=== PATIENT | female | born 1950 | race African-American/Black ===

== ENCOUNTER 2024-09-25 12:50 | Inpatient (IN) | payer OTHER, MEDICARE ==
[~2024-09-25] VITALS: Ht 167.6 cm; Wt 78.1 kg
[2024-09-25] MEDS: DILTIAZEM HCL 5MG/ML 5ML VIAL IV ONE ×3 (13:40→19:15)
[2024-09-25] MEDS: SODIUM CHLORIDE 0.9% 1,000 ML IV ONE (13:40)
[2024-09-25 15:02] LABS: BASOPHILS % 0.2 % (0.0-2.0); HEMATOCRIT. 36.4 % (36.0-48.0); HEMOGLOBIN. 11.7 g/dL (12.0-16.0); LYMPHOCYTES % 12.8 % (20.0-50.0); MEAN CORPUSCULAR HEMOGLOBIN 28.8 pg (28.0-32.0); MEAN CORPUSCULAR HGB CONC 32.1 g/dL (31.0-37.0); MEAN CORPUSCULAR VOLUME 89.6 fL (81.0-99.0); MEAN PLATELET VOLUME 8.7 fl (7.4-10.4); MONOCYTES % 6.7 % (2.0-8.0); NEUTROPHILS % 80.3 % (40.0-76.0); PLATELET 151 x1000/uL (130-400); RED BLOOD CELL COUNT 4.06 mill/uL (4.2-5.4); RED CELL DISTRIBUTION WIDTH 14.9 % (11.6-14.6); WHITE BLOOD COUNT 20.9 x1000/uL (4.5-11.0)
[2024-09-25 15:09] LABS: CHLORIDE 101 mEq/L (98-107); POTASSIUM 3.2 mEq/L (3.5-5.1); SODIUM 134 mEq/L (136-145)
[2024-09-25 15:10] LABS: CARBON DIOXIDE 19 mEq/L (21-32)
[2024-09-25 15:11] LABS: CALCIUM 8.3 mg/dL (8.7-10.4)
[2024-09-25 15:15] LABS: CREATININE 0.9 mg/dL (0.6-1.0); GLUCOSE 335 mg/dL (70-105)
[2024-09-25 15:16] LABS: ETHANOL BLOOD < 10 mg/dL (<10); UREA NITROGEN BLOOD 8 mg/dL (9-23)
[2024-09-25 15:17] LABS: ALANINE AMINOTRANSFERASE 12 IU/L (10-49); ALBUMIN 4.1 g/dL (3.2-4.8); ASPARTATE AMINOTRANSFERASE 16 IU/L (<34)
[2024-09-25 15:18] LABS: BILIRUBIN DIRECT 0.4 mg/dL (<=3.0); BILIRUBIN TOTAL 1.5 mg/dL (0.1-1.0); PROTEIN TOTAL 7.1 g/dL (6.0-8.3)
[2024-09-25 15:39] LABS: TROPONIN I HIGH SENSITIVITY 113 ng/L (3.0-34)
[2024-09-25] MEDS ORDERED: PIPERACILLIN/TAZO 3.375G/100ML 100 ML IV SCH (16:00)
[2024-09-25] MEDS: HYDROCODONE/ACETAMINOPHEN 5/325MG TABLET PO ONE (16:18)
[2024-09-25] MEDS: POTASSIUM CHLORIDE 20MEQ/PACKET PO ONE (16:18)
[2024-09-25] MEDS: PIPERACILLIN/TAZO 3.375G/50ML 50 ML IV NR (16:53)
[2024-09-25] MEDS ORDERED: SODIUM PHOSPHATE 15 MMOL in SODIUM CHLORIDE 0.9% 245 ML IV PRN (17:00)
[2024-09-25] MEDS ORDERED: INSULIN REGULAR (DRIP) 100 UNITS in SODIUM CHLORIDE 0.9% 99 ML IV SCH (17:00)
[2024-09-25] MEDS ORDERED: POTASSIUM CHLORIDE 40 MEQ in SODIUM CHLORIDE 0.9% 230 ML IV PRN (17:00)
[2024-09-25] MEDS ORDERED: DEXTROSE 50% WATER 50ML SYRINGE IV PRN ×4 (17:00→20:00)
[2024-09-25] MEDS ORDERED: BLOOD SUGAR DIAGNOSTIC STRIP TEST PRN ×2 (17:00→20:00)
[2024-09-25 17:34] LABS: LACTIC ACID 2.8 mmol/L (0.4-2.0)
[2024-09-25] MEDS: INSULIN REGULAR (HUMULIN R) 1000UNITS/10ML VIAL IV ONE (17:51)
[2024-09-25] MEDS: BLOOD SUGAR DIAGNOSTIC STRIP TEST SCH ×2 (17:52→20:15)
[2024-09-25] MEDS: INSULIN REGULAR 100U/100ML PMX 100 ML IV SCH (17:52)
[2024-09-25] MEDS: SODIUM CHLORIDE 0.9% 1,000 ML IV SCH ×2 (17:52→21:00)
[2024-09-25 18:07] LABS: BG BASE EXCESS -3.2 mmol/L (-2.0-3.0); BG CARBOXYHEMOGLOBIN 0.4 % (0.5-1.5); BG DEOXYHEMOGLOBIN 2.9 % (0.0-5.0); BG FRACTION INSPIRED OXYGEN 21; BG HCO3 ACT 18.9 mmol/L (21.0-28.0); BG METHEMOGLOBIN 0.3 % (0.5-1.5); BG OXYGEN SATURATION 97.1 % (94.0-98.0); BG OXYHEMOGLOBIN 96.4 % (94.0-98.0); BG PCO2 25.2 mmHg (32.0-45.0); BG PH 7.492 (7.350-7.450); BG PO2 83.4 mmHg (83.0-108.0); BG SAMPLE SITE RIGHT BRACHIAL; BG TOTAL HEMOGLOBIN 11.2 g/dL (12.0-16.0); BG VENT MODE ROOM AIR
[2024-09-25 18:18] LABS: PHOSPHORUS 1.7 mg/dL (2.5-4.9)
[2024-09-25] MEDS ORDERED: MAGNESIUM/ALUMINUM HYDROXIDE/SIMETHICONE 30ML UDC PO PRN (20:00)
[2024-09-25] MEDS ORDERED: MAGNESIUM 2 G PREMIX 50 ML IV PRN (20:00)
[2024-09-25] MEDS ORDERED: ONDANSETRON HCL 4MG/2ML INJ IV PRN (20:00)
[2024-09-25] MEDS ORDERED: DOCUSATE SODIUM 100MG CAPSULE PO PRN (20:00)
[2024-09-25] MEDS ORDERED: KCL 20MEQ/100ML PREMIX 100 ML IV PRN (20:00)
[2024-09-25] MEDS ORDERED: CLONIDINE 0.1MG TABLET PO PRN (20:00)
[2024-09-25] MEDS: DEXT 5%/0.9% NACL 1,000 ML IV SCH ×2 (20:55→21:00)
[2024-09-25] MEDS ORDERED: BLOOD SUGAR DIAGNOSTIC STRIP TEST SCH (21:00)
[2024-09-25] MEDS ORDERED: POTASSIUM CHLORIDE 40 MEQ in SODIUM CHLORIDE 0.9% 250 ML IV PRN (21:00)
[2024-09-25] MEDS ORDERED: AMIODARONE 360MG/200ML 200 ML IV SCH (21:15)
[2024-09-25 21:22] LABS: BG BASE EXCESS -4.2 mmol/L (-2.0-3.0); BG CARBOXYHEMOGLOBIN 0.3 % (0.5-1.5); BG DEOXYHEMOGLOBIN 77.9 % (0.0-5.0); BG FRACTION INSPIRED OXYGEN 21; BG HCO3 ACT 19.9 mmol/L (21.0-28.0); BG METHEMOGLOBIN 1.5 % (0.5-1.5); BG OXYGEN SATURATION 20.7 % (94.0-98.0); BG OXYHEMOGLOBIN 20.3 % (94.0-98.0); BG PCO2 32.9 mmHg (32.0-45.0); BG PH 7.399 (7.350-7.450); BG PO2 < 30.3 mmHg (83.0-108.0); BG SAMPLE SITE PL; BG TOTAL HEMOGLOBIN 11.4 g/dL (12.0-16.0); BG VENT MODE ROOM AIR
[2024-09-25] MEDS: AMIODARONE 360MG/200ML 200 ML IV SCH (21:27)
[2024-09-25 21:37] LABS: CHLORIDE 108 mEq/L (98-107); POTASSIUM 3.6 mEq/L (3.5-5.1); SODIUM 138 mEq/L (136-145)
[2024-09-25 21:38] LABS: CALCIUM 8.2 mg/dL (8.7-10.4); CARBON DIOXIDE 20 mEq/L (21-32)
[2024-09-25 21:43] LABS: CREATININE 0.8 mg/dL (0.6-1.0); GLUCOSE 189 mg/dL (70-105); UREA NITROGEN BLOOD 8 mg/dL (9-23)
[2024-09-25 21:45] LABS: PHOSPHORUS 1.1 mg/dL (2.5-4.9)
[2024-09-25] MEDS: AMIODARONE 150MG/100ML D5W 100 ML IV NR (21:46)
[2024-09-25] MEDS: LORAZEPAM 2MG/ML UD SYRINGE IV NR (23:28)
[2024-09-26] VITALS (75 sets, daily range): BP systolic 53–184; BP diastolic 25–119; PULSE 93–173; RESP 19–42; TEMP 37–38.3; O2SAT 91–100
[2024-09-26] MEDS: SODIUM PHOSPHATE 15 MMOL in SODIUM CHLORIDE 0.9% 245 ML IV PRN
[2024-09-26] MEDS: MAGNESIUM 2 G PREMIX 50 ML IV PRN (00:20)
[2024-09-26] MEDS: KCL 20MEQ/100ML PREMIX 100 ML IV PRN (00:21)
[2024-09-26 00:56] LABS: CHLORIDE 108 mEq/L (98-107); SODIUM 138 mEq/L (136-145)
[2024-09-26 00:57] LABS: CARBON DIOXIDE 18 mEq/L (21-32)
[2024-09-26 01:05] LABS: PHOSPHORUS 1.1 mg/dL (2.5-4.9)
[2024-09-26 01:07] LABS: POTASSIUM 2.7 mEq/L (3.5-5.1)
[2024-09-26] MEDS ORDERED: DEXTROSE 50% WATER 50ML SYRINGE IV PRN (01:45)
[2024-09-26] MEDS ORDERED: HEPARIN 25,000 UNITS PREMIX 250 ML IV PRN (01:45)
[2024-09-26] MEDS: DILTIAZEM HCL 125 MG in DEXT 5% WATER 100 ML IV PRN ×2 (02:07→12:32)
[2024-09-26] MEDS: SODIUM CHLORIDE 0.9% 1,000 ML IV SCH (02:07)
[2024-09-26] MEDS: MAGNESIUM 4 G PREMIX 100 ML IV NR (02:07)
[2024-09-26] MEDS: KCL 20MEQ/100ML PREMIX 100 ML IV SCH ×2 (02:16→08:17)
[2024-09-26] MEDS: INSULIN GLARGINE 100 UNITS/ML SUBCUT SCH (03:12)
[2024-09-26 03:18] LABS: CHLORIDE 104 mEq/L (98-107); POTASSIUM 2.9 mEq/L (3.5-5.1); SODIUM 136 mEq/L (136-145)
[2024-09-26 03:19] LABS: CALCIUM 7.9 mg/dL (8.7-10.4); CARBON DIOXIDE 19 mEq/L (21-32)
[2024-09-26] MEDS: CEFTRIAXONE 1GM/50ML 50 ML IV SCH (03:21)
[2024-09-26 03:24] LABS: CREATININE 0.8 mg/dL (0.6-1.0); GLUCOSE 284 mg/dL (70-105); UREA NITROGEN BLOOD 6 mg/dL (9-23)
[2024-09-26 03:25] LABS: BASOPHILS % 0.2 % (0.0-2.0); HEMATOCRIT. 33.3 % (36.0-48.0); HEMOGLOBIN. 10.7 g/dL (12.0-16.0); MEAN CORPUSCULAR HEMOGLOBIN 28.3 pg (28.0-32.0); MEAN CORPUSCULAR HGB CONC 32.2 g/dL (31.0-37.0); MEAN CORPUSCULAR VOLUME 87.9 fL (81.0-99.0); MEAN PLATELET VOLUME 8.9 fl (7.4-10.4); MONOCYTES % 7.9 % (2.0-8.0); NEUTROPHILS % 75.9 % (40.0-76.0); PLATELET 138 x1000/uL (130-400); RED BLOOD CELL COUNT 3.78 mill/uL (4.2-5.4); RED CELL DISTRIBUTION WIDTH 14.9 % (11.6-14.6); WHITE BLOOD COUNT 12.1 x1000/uL (4.5-11.0)
[2024-09-26 03:50] LABS: INR 1.1; PARTIAL THROMBOPLASTIN TIME 35.1 sec (23.4-31.0); PROTHROMBIN TIME 11.5 sec (9.6-11.0)
[2024-09-26] MEDS: BLOOD SUGAR DIAGNOSTIC STRIP TEST SCH (06:22)
[2024-09-26 06:25] LABS: BASOPHILS % 0.2 % (0.0-2.0); HEMATOCRIT. 34.6 % (36.0-48.0); HEMOGLOBIN. 11.2 g/dL (12.0-16.0); LYMPHOCYTES % 15.7 % (20.0-50.0); MEAN CORPUSCULAR HEMOGLOBIN 28.6 pg (28.0-32.0); MEAN CORPUSCULAR HGB CONC 32.2 g/dL (31.0-37.0); MEAN CORPUSCULAR VOLUME 88.9 fL (81.0-99.0); MEAN PLATELET VOLUME 9.5 fl (7.4-10.4); MONOCYTES % 7.6 % (2.0-8.0); NEUTROPHILS % 76.5 % (40.0-76.0); PLATELET 138 x1000/uL (130-400); RED BLOOD CELL COUNT 3.89 mill/uL (4.2-5.4); RED CELL DISTRIBUTION WIDTH 14.8 % (11.6-14.6); WHITE BLOOD COUNT 12.7 x1000/uL (4.5-11.0)
[2024-09-26 06:27] LABS: CARBON DIOXIDE 18 mEq/L (21-32); CHLORIDE 105 mEq/L (98-107); POTASSIUM 3.2 mEq/L (3.5-5.1); SODIUM 136 mEq/L (136-145)
[2024-09-26 06:28] LABS: CALCIUM 7.9 mg/dL (8.7-10.4)
[2024-09-26] MEDS: HEPARIN 60 UNITS/KG BOLUS IV SCH (06:28)
[2024-09-26] MEDS: INSULIN LISPRO 100 UNITS/ML SUBCUT SCH (06:32)
[2024-09-26 06:33] LABS: CREATININE 0.8 mg/dL (0.6-1.0); GLUCOSE 282 mg/dL (70-105); TRIGLYCERIDE 143 mg/dL (0-150); UREA NITROGEN BLOOD < 5 mg/dL (9-23)
[2024-09-26 06:34] LABS: LDL CHOLESTEROL 85 mg/dL (5-100)
[2024-09-26 06:35] LABS: ALANINE AMINOTRANSFERASE 17 IU/L (10-49); ALBUMIN 3.8 g/dL (3.2-4.8); ASPARTATE AMINOTRANSFERASE 33 IU/L (<34); BILIRUBIN DIRECT 0.2 mg/dL (<=3.0); CHOLESTEROL 142 mg/dL (<200); HDL CHOLESTEROL 33 mg/dL (>65); PHOSPHORUS 1.6 mg/dL (2.5-4.9)
[2024-09-26 06:36] LABS: BILIRUBIN TOTAL 0.7 mg/dL (0.1-1.0); PROTEIN TOTAL 6.8 g/dL (6.0-8.3); T4 FREE 1.07 ng/dL (0.89-1.76)
[2024-09-26] MEDS: HEPARIN 25,000 UNITS PREMIX 250 ML IV SCH (06:42)
[2024-09-26] MEDS: POTASSIUM PHOSPHATE 30 MMOL in SODIUM CHLORIDE 0.9% 490 ML IV SCH (06:57)
[2024-09-26 07:01] LABS: TROPONIN I HIGH SENSITIVITY 97 ng/L (3.0-34)
[2024-09-26] MEDS: PANTOPRAZOLE SODIUM 40 MG/VIAL IV SCH (08:16)
[2024-09-26] MEDS: HYDROCODONE/ACETAMINOPHEN 5/325MG TABLET PO PRN (08:17)
[2024-09-26] MEDS: MAGNESIUM 2 G PREMIX 50 ML IV NR (08:17)
[2024-09-26] MEDS ORDERED: ENOXAPARIN 40MG/0.4ML SYR SUBCUT SCH (09:00)
[2024-09-26 09:02] LABS: CLARITY URINE CLEAR (CLEAR); COLOR URINE YELLOW (YELLOW); GLUCOSE URINE 3+ (NEGATIVE); KETONES URINE 1+ (NEGATIVE); LEUKOCYTE ESTERASE URINE NEGATIVE (NEGATIVE); NITRITE URINE NEGATIVE (NEGATIVE); OCCULT BLOOD URINE TRACE (NEGATIVE); PROTEIN URINE 1+ (NEGATIVE); SPECIFIC GRAVITY URINE 1.015 (1.005-1.030)
[2024-09-26 09:14] LABS: BG BASE EXCESS -6.3 mmol/L (-2.0-3.0); BG CARBOXYHEMOGLOBIN 0.3 % (0.5-1.5); BG FRACTION INSPIRED OXYGEN 32; BG HCO3 ACT 16.6 mmol/L (21.0-28.0); BG METHEMOGLOBIN 0.3 % (0.5-1.5); BG OXYHEMOGLOBIN 97.4 % (94.0-98.0); BG PCO2 25.5 mmHg (32.0-45.0); BG PH 7.431 (7.350-7.450); BG PO2 95.8 mmHg (83.0-108.0); BG SAMPLE SITE LEFT RADIAL; BG TOTAL HEMOGLOBIN 11.2 g/dL (12.0-16.0); BG VENT MODE NASAL CANNULA
[2024-09-26 09:33] LABS: SQUAMOUS EPITHELIAL CELL URINE RARE /lpf (RARE/1+)
[2024-09-26 09:34] LABS: BACTERIA URINE TRACE; RBC URINE 0-2 /hpf (0-2); WBC URINE 0-2 /hpf (0-2)
[2024-09-26 10:12] LABS: *AMPHETAMINES SCREEN URINE NEGATIVE (NEGATIVE); *BARBITURATES SCREEN URINE NEGATIVE (NEGATIVE); *BENZODIAZEPINES SCREEN URINE NEGATIVE (NEGATIVE); *COCAINE SCREEN URINE NEGATIVE (NEGATIVE); CANNABINOID URINE SCREEN NEGATIVE (NEGATIVE); ECSTASY MDMA SCREEN URINE NEGATIVE (NEGATIVE); METHADONE URINE SCREEN NEGATIVE (NEGATIVE); OPIATES URINE SCREEN PRESUMPTIVE POSITIVE (NEGATIVE); PHENCYCLIDINE URINE SCREEN NEGATIVE (NEGATIVE)
[2024-09-26] MEDS: MAGNESIUM OXIDE 400MG TABLET PO SCH (12:29)
[2024-09-26] MEDS: ENOXAPARIN 80MG/0.8ML SYR SUBCUT SCH (12:29)
[2024-09-26] MEDS: DILTIAZEM HCL 30MG TABLET PO SCH (12:30)
[2024-09-26 12:32] LABS: CARBON DIOXIDE 19 mEq/L (21-32); CHLORIDE 109 mEq/L (98-107); POTASSIUM 3.2 mEq/L (3.5-5.1); SODIUM 138 mEq/L (136-145)
[2024-09-26 12:33] LABS: CALCIUM 7.2 mg/dL (8.7-10.4)
[2024-09-26 12:37] LABS: CREATININE 0.8 mg/dL (0.6-1.0); GLUCOSE 198 mg/dL (70-105)
[2024-09-26 12:38] LABS: UREA NITROGEN BLOOD < 5 mg/dL (9-23)
[2024-09-26 12:55] LABS: LACTIC ACID 2.5 mmol/L (0.4-2.0)
[2024-09-26] MEDS ORDERED: HEPARIN BOLUS PRN aPTT <30 IV (13:00)
[2024-09-26] MEDS ORDERED: HEPARIN BOLUS PRN aPTT 30-44 IV (13:00)
[2024-09-26] MEDS: ACETAMINOPHEN 325MG TABLET PO PRN (13:14)
[2024-09-26] MEDS: VANCOMYCIN 1.25GM/250ML 250 ML IV NR (13:44)
[2024-09-26] MEDS ORDERED: PIPERACILLIN/TAZO 3.375G/50ML 50 ML IV SCH (14:00)
[2024-09-26] MEDS ORDERED: NALOXONE HCL 0.4MG/ML VIAL IV PRN (14:45)
[2024-09-26] MEDS: KCL 20MEQ/100ML PREMIX 100 ML IV NR (16:05)
[2024-09-26] MEDS ORDERED: TRAMADOL 50MG TABLET PO PRN (17:45)
[2024-09-26 17:59] LABS: CHLORIDE 111 mEq/L (98-107); POTASSIUM 3.9 mEq/L (3.5-5.1); SODIUM 139 mEq/L (136-145)
[2024-09-26 18:00] LABS: CARBON DIOXIDE 18 mEq/L (21-32)
[2024-09-26 18:08] LABS: PHOSPHORUS 1.9 mg/dL (2.5-4.9)
[2024-09-26] MEDS: TRAMADOL 50MG TABLET PO PRN (20:11)
[2024-09-27] VITALS (112 sets, daily range): BP systolic 83–182; BP diastolic 36–145; PULSE 80–185; RESP 18–46; TEMP 37–38.6; O2SAT 62–100
[2024-09-27] MEDS: BLOOD SUGAR DIAGNOSTIC STRIP TEST SCH
[2024-09-27] MEDS: IPRATROPIUM/ALBUTEROL 0.5-3(2.5)MG/3ML NEB HHN PRN (00:22)
[2024-09-27] MEDS: ACETAMINOPHEN 325MG TABLET PO NR (00:30)
[2024-09-27] MEDS: INSULIN LISPRO 100 UNITS/ML SUBCUT SCH ×2 (00:39→06:15)
[2024-09-27 05:40] LABS: CHLORIDE 106 mEq/L (98-107); POTASSIUM 3.4 mEq/L (3.5-5.1); SODIUM 135 mEq/L (136-145)
[2024-09-27 05:42] LABS: CALCIUM 7.3 mg/dL (8.7-10.4); CARBON DIOXIDE 17 mEq/L (21-32)
[2024-09-27 05:47] LABS: CREATININE 0.8 mg/dL (0.6-1.0); GLUCOSE 284 mg/dL (70-105); UREA NITROGEN BLOOD 6 mg/dL (9-23)
[2024-09-27 05:49] LABS: ALANINE AMINOTRANSFERASE 63 IU/L (10-49); ALBUMIN 3.5 g/dL (3.2-4.8); ASPARTATE AMINOTRANSFERASE 105 IU/L (<34)
[2024-09-27 05:50] LABS: BASOPHILS % 0.2 % (0.0-2.0); BILIRUBIN DIRECT 0.2 mg/dL (<=3.0); BILIRUBIN TOTAL 0.6 mg/dL (0.1-1.0); EOSINOPHILS % 0.2 % (0.0-5.0); HEMATOCRIT. 29.3 % (36.0-48.0); HEMOGLOBIN. 9.5 g/dL (12.0-16.0); LYMPHOCYTES % 11.1 % (20.0-50.0); MEAN CORPUSCULAR HGB CONC 32.4 g/dL (31.0-37.0); MEAN CORPUSCULAR VOLUME 89.3 fL (81.0-99.0); MEAN PLATELET VOLUME 9.5 fl (7.4-10.4); MONOCYTES % 10.6 % (2.0-8.0); NEUTROPHILS % 77.9 % (40.0-76.0); PHOSPHORUS 2.7 mg/dL (2.5-4.9); PLATELET 134 x1000/uL (130-400); RED BLOOD CELL COUNT 3.28 mill/uL (4.2-5.4); RED CELL DISTRIBUTION WIDTH 15.2 % (11.6-14.6); WHITE BLOOD COUNT 11.2 x1000/uL (4.5-11.0)
[2024-09-27 05:51] LABS: PROTEIN TOTAL 6.2 g/dL (6.0-8.3)
[2024-09-27 05:53] LABS: THYROID STIMULATING HORMONE 0.17 uIU/mL (0.55-4.78)
[2024-09-27 06:00] LABS: BG BASE EXCESS -8.2 mmol/L (-2.0-3.0); BG CARBOXYHEMOGLOBIN 0.3 % (0.5-1.5); BG DEOXYHEMOGLOBIN 10.6 % (0.0-5.0); BG FRACTION INSPIRED OXYGEN 40; BG HCO3 ACT 14.8 mmol/L (21.0-28.0); BG METHEMOGLOBIN 0.3 % (0.5-1.5); BG OXYGEN SATURATION 89.3 % (94.0-98.0); BG OXYHEMOGLOBIN 88.8 % (94.0-98.0); BG PCO2 23.9 mmHg (32.0-45.0); BG PO2 51.5 mmHg (83.0-108.0); BG SAMPLE SITE RIGHT BRACHIAL; BG TOTAL HEMOGLOBIN 11.3 g/dL (12.0-16.0); BG VENT MODE NASAL CANNULA
[2024-09-27] MEDS: LEVOTHYROXINE SODIUM 50MCG TABLET PO SCH (06:30)
[2024-09-27] MEDS: METOPROLOL TARTRATE 5MG/5ML VIAL IV NR (10:03)
[2024-09-27] MEDS: DILTIAZEM HCL 5MG/ML 5ML VIAL IV NR (10:04)
[2024-09-27 11:08] LABS: LACTIC ACID 2.4 mmol/L (0.4-2.0)
[2024-09-27] MEDS: LORAZEPAM 2MG/ML UD SYRINGE IV PRN (11:39)
[2024-09-27 13:21] LABS: BG CARBOXYHEMOGLOBIN 0.3 % (0.5-1.5); BG DEOXYHEMOGLOBIN 3.7 % (0.0-5.0); BG FRACTION INSPIRED OXYGEN 100; BG HCO3 ACT 16.9 mmol/L (21.0-28.0); BG METHEMOGLOBIN 0.1 % (0.5-1.5); BG OXYGEN SATURATION 96.3 % (94.0-98.0); BG OXYHEMOGLOBIN 95.9 % (94.0-98.0); BG PCO2 41.3 mmHg (32.0-45.0); BG PH 7.231 (7.350-7.450); BG PO2 90.1 mmHg (83.0-108.0); BG SAMPLE SITE RIGHT RADIAL; BG TOTAL HEMOGLOBIN 11.3 g/dL (12.0-16.0); BG VENT MODE VENT - AC
[2024-09-27] MEDS: FENTANYL 2500MCG/250ML PMX 250 ML IV PRN (14:27)
[2024-09-27] MEDS: PROPOFOL 10MG/ML 100ML 100 ML IV PRN (14:28)
[2024-09-27] MEDS: VANCOMYCIN 1.25GM/250ML 250 ML IV SCH (14:28)
[2024-09-27] MEDS: METOPROLOL TARTRATE 25MG TABLET PO SCH (14:28)
[2024-09-27] MEDS: KCL 20MEQ/100ML PREMIX 100 ML IV SCH (15:16)
[2024-09-27] MEDS: SODIUM CHLORIDE 3% FOR INH 4ML NEB INH SCH (20:39)
[2024-09-27] MEDS: IPRATROPIUM/ALBUTEROL 0.5-3(2.5)MG/3ML NEB HHN SCH (20:39)
[2024-09-27 21:28] LABS: BG BASE EXCESS -7.9 mmol/L (-2.0-3.0); BG CARBOXYHEMOGLOBIN 0.3 % (0.5-1.5); BG DEOXYHEMOGLOBIN 0.4 % (0.0-5.0); BG FRACTION INSPIRED OXYGEN 100; BG HCO3 ACT 15.1 mmol/L (21.0-28.0); BG METHEMOGLOBIN 0.3 % (0.5-1.5); BG OXYGEN SATURATION 99.6 % (94.0-98.0); BG PCO2 24.3 mmHg (32.0-45.0); BG PH 7.412 (7.350-7.450); BG PO2 169.4 mmHg (83.0-108.0); BG SAMPLE SITE RIGHT RADIAL; BG TOTAL HEMOGLOBIN 11.1 g/dL (12.0-16.0); BG VENT MODE VENT - AC
[2024-09-27] MEDS: METHYLPREDNISOLONE SOD SUCC 500 MG in DEXT 5% WATER 100 ML IV NR (22:38)
[2024-09-27 23:17] LABS: CHLORIDE 113 mEq/L (98-107); POTASSIUM 3.7 mEq/L (3.5-5.1); SODIUM 139 mEq/L (136-145)
[2024-09-27 23:18] LABS: CALCIUM 7.4 mg/dL (8.7-10.4); CARBON DIOXIDE 17 mEq/L (21-32)
[2024-09-27 23:23] LABS: CREATININE 0.8 mg/dL (0.6-1.0); GLUCOSE 97 mg/dL (70-105); UREA NITROGEN BLOOD 6 mg/dL (9-23)
[2024-09-27 23:25] LABS: PHOSPHORUS 1.7 mg/dL (2.5-4.9)
[2024-09-27] MEDS: METHYLPREDNISOLONE SOD SUCC 125MG/2ML (ACT-O-VIAL) IV SCH (23:49)
[2024-09-28] VITALS (101 sets, daily range): BP systolic 83–125; BP diastolic 48–75; PULSE 65–138; RESP 15–39; TEMP 36.8–39.6; O2SAT 95–100
[2024-09-28] MEDS: ACETYLCYSTEINE 200MG/ML 20% VIAL 4ML INH SCH (00:05)
[2024-09-28 05:56] LABS: BASOPHILS % 0.1 % (0.0-2.0); EOSINOPHILS % 0.1 % (0.0-5.0); HEMATOCRIT. 27.6 % (36.0-48.0); HEMOGLOBIN. 9.2 g/dL (12.0-16.0); LYMPHOCYTES % 11.6 % (20.0-50.0); MEAN CORPUSCULAR HEMOGLOBIN 28.7 pg (28.0-32.0); MEAN CORPUSCULAR HGB CONC 33.2 g/dL (31.0-37.0); MEAN CORPUSCULAR VOLUME 86.3 fL (81.0-99.0); MEAN PLATELET VOLUME 9.7 fl (7.4-10.4); MONOCYTES % 2.4 % (2.0-8.0); NEUTROPHILS % 85.8 % (40.0-76.0); PLATELET 135 x1000/uL (130-400); RED CELL DISTRIBUTION WIDTH 15.2 % (11.6-14.6); WHITE BLOOD COUNT 9.4 x1000/uL (4.5-11.0)
[2024-09-28 05:59] LABS: CARBON DIOXIDE 14 mEq/L (21-32); CHLORIDE 111 mEq/L (98-107); POTASSIUM 3.8 mEq/L (3.5-5.1); SODIUM 139 mEq/L (136-145)
[2024-09-28 06:00] LABS: CALCIUM 7.6 mg/dL (8.7-10.4)
[2024-09-28 06:05] LABS: CREATININE 0.9 mg/dL (0.6-1.0); GLUCOSE 192 mg/dL (70-105); TRIGLYCERIDE 212 mg/dL (0-150); UREA NITROGEN BLOOD 8 mg/dL (9-23)
[2024-09-28] MEDS: FENTANYL CITRATE/PF 2,500 MCG in SODIUM CHLORIDE 0.9% 200 ML IV PRN (08:08)
[2024-09-28] MEDS: FAMOTIDINE 20MG/2ML VIAL IV SCH (08:57)
[2024-09-28] MEDS: METOPROLOL TARTRATE 25MG TABLET PO SCH (08:57)
[2024-09-28] MEDS: ALBUMIN HUMAN 25GM/500ML (5%) IV SCH (09:21)
[2024-09-28 09:51] LABS: BG CARBOXYHEMOGLOBIN 0.6 % (0.5-1.5); BG FRACTION INSPIRED OXYGEN 40; BG HCO3 ACT 10.6 mmol/L (21.0-28.0); BG METHEMOGLOBIN 0.3 % (0.5-1.5); BG OXYGEN SATURATION 91.9 % (94.0-98.0); BG OXYHEMOGLOBIN 91.1 % (94.0-98.0); BG PCO2 27.7 mmHg (32.0-45.0); BG PO2 68.3 mmHg (83.0-108.0); BG SAMPLE SITE RIGHT BRACHIAL; BG TOTAL HEMOGLOBIN 9.5 g/dL (12.0-16.0); BG VENT MODE VENT - AC
[2024-09-28] MEDS: SODIUM BICARBONATE 8.4% 50MEQ/50ML SYR IV NR (10:22)
[2024-09-28] MEDS: METHYLPREDNISOLONE SOD SUCC 40MG/ML (ACT-O-VIAL) IV SCH (12:08)
[2024-09-28 12:52] LABS: LACTIC ACID 2.2 mmol/L (0.4-2.0)
[2024-09-28] MEDS: SODIUM BICARBONATE 100 MEQ in SODIUM CHLORIDE 0.45% 900 ML IV SCH (12:57)
[2024-09-28] MEDS: PROPOFOL 10MG/ML 100ML 100 ML IV PRN (13:31)
[2024-09-28] MEDS: METOPROLOL TARTRATE 5MG/5ML VIAL IV PRN (15:09)
[2024-09-28 17:41] LABS: BG BASE EXCESS -9.6 mmol/L (-2.0-3.0); BG DEOXYHEMOGLOBIN 2.4 % (0.0-5.0); BG FRACTION INSPIRED OXYGEN 40; BG HCO3 ACT 14.9 mmol/L (21.0-28.0); BG OXYGEN SATURATION 97.6 % (94.0-98.0); BG OXYHEMOGLOBIN 96.6 % (94.0-98.0); BG PCO2 27.4 mmHg (32.0-45.0); BG PH 7.353 (7.350-7.450); BG PO2 90.5 mmHg (83.0-108.0); BG SAMPLE SITE RIGHT RADIAL; BG VENT MODE VENT - AC
[2024-09-28] MEDS: INSULIN LISPRO 100 UNITS/ML SUBCUT SCH (18:30)
[2024-09-28] MEDS: MIDAZOLAM 100MG/100ML PMX 100 ML IV PRN (19:39)
[2024-09-28] MEDS: DILTIAZEM HCL 5MG/ML 5ML VIAL IV NR (21:03)
[2024-09-29] VITALS (87 sets, daily range): BP systolic 89–147; BP diastolic 40–84; PULSE 69–148; RESP 15–31; TEMP 36.5–36.7; O2SAT 95–100
[2024-09-29 07:44] LABS: BG BASE EXCESS -4.3 mmol/L (-2.0-3.0); BG CARBOXYHEMOGLOBIN 0.3 % (0.5-1.5); BG DEOXYHEMOGLOBIN 3.2 % (0.0-5.0); BG FRACTION INSPIRED OXYGEN 40; BG HCO3 ACT 18.4 mmol/L (21.0-28.0); BG OXYGEN SATURATION 96.8 % (94.0-98.0); BG OXYHEMOGLOBIN 96.5 % (94.0-98.0); BG PCO2 25.1 mmHg (32.0-45.0); BG PH 7.482 (7.350-7.450); BG PO2 79.8 mmHg (83.0-108.0); BG SAMPLE SITE RIGHT RADIAL; BG TOTAL HEMOGLOBIN 8.3 g/dL (12.0-16.0); BG VENT MODE VENT - AC
[2024-09-29 10:38] LABS: CHLORIDE 111 mEq/L (98-107); SODIUM 144 mEq/L (136-145)
[2024-09-29 10:39] LABS: CARBON DIOXIDE 17 mEq/L (21-32)
[2024-09-29 10:40] LABS: CALCIUM 8.1 mg/dL (8.7-10.4); HEMOGLOBIN. 8.6 g/dL (12.0-16.0); MEAN CORPUSCULAR HEMOGLOBIN 28.2 pg (28.0-32.0); MEAN CORPUSCULAR VOLUME 85.5 fL (81.0-99.0); MEAN PLATELET VOLUME 9.9 fl (7.4-10.4); PLATELET 166 x1000/uL (130-400); RED BLOOD CELL COUNT 3.05 mill/uL (4.2-5.4); RED CELL DISTRIBUTION WIDTH 15.2 % (11.6-14.6); WHITE BLOOD COUNT 11.6 x1000/uL (4.5-11.0)
[2024-09-29 10:41] LABS: DIFFERENTIAL COMMENT 1
[2024-09-29 10:44] LABS: CREATININE 0.8 mg/dL (0.6-1.0)
[2024-09-29 10:45] LABS: GLUCOSE 268 mg/dL (70-105); UREA NITROGEN BLOOD 13 mg/dL (9-23)
[2024-09-29 12:09] LABS: PLATELET ESTIMATE NORMAL
[2024-09-29 12:10] LABS: ANISOCYTOSIS 1+; POTASSIUM 2.4 mEq/L (3.5-5.1)
[2024-09-29] MEDS: FENTANYL CITRATE 2,500 MCG in SODIUM CHLORIDE 0.9% 200 ML IV PRN (13:30)
[2024-09-29] MEDS: KCL 20MEQ/100ML PREMIX 100 ML IV SCH (13:31)
[2024-09-29] MEDS: PROPOFOL 10MG/ML 100ML 100 ML IV SCH (15:54)
[2024-09-29] MEDS ORDERED: KCL 20MEQ/100ML PREMIX 100 ML IV SCH (22:00)
== END 2024-09-29 20:55 | disposition short-term general hospital (02) | DRG 871 ==
LOC: ER 12:50 → EDBEDREQ 17:53 → EDBEDREQSVC 17:53 → EDBEDREQTM 17:53 → MICUNO 22:29
PROVIDERS: ADMIT Family Medicine Adult Medicine; ATTEND Family Medicine Adult Medicine
PROC: 5A1945Z Respiratory Ventilation, 24-96 Consecutive Hours (ICD-10-PCS; principal; 2024-09-27)
PROC: 0BH17EZ Insertion of Endotracheal Airway into Trachea, Via Natural or Artificial Opening (ICD-10-PCS; 2024-09-27)
DX: A41.9 Sepsis, unspecified organism (principal); E11.10 Type 2 diabetes mellitus with ketoacidosis without coma; J18.9 Pneumonia, unspecified organism; G92.8 Other toxic encephalopathy; J96.01 Acute respiratory failure with hypoxia; I48.20 Chronic atrial fibrillation, unspecified; I48.92 Unspecified atrial flutter; D68.59 Other primary thrombophilia; E87.6 Hypokalemia; E83.39 Other disorders of phosphorus metabolism; I10 Essential (primary) hypertension; E78.5 Hyperlipidemia, unspecified; E83.42 Hypomagnesemia; R45.1 Restlessness and agitation; Z78.1 Physical restraint status; Z79.01 Long term (current) use of anticoagulants; Z79.4 Long term (current) use of insulin; Z79.899 Other long term (current) drug therapy; Z87.891 Personal history of nicotine dependence; Z98.51 Tubal ligation status
CPT/HCPCS: 36415; 36600; 71045; 80048; 80051; 80061; 80076; 80202; 80305; 80320; 81003; 82010; 82375; 82805; 82962; 83036; 83605; 83735; 83880; 83930; 84100; 84145; 84439; 84443; 84478; 84484; 85025; 87070; 93005; 93306; 93970; 94002; 94003; 94070; 94640; 94664; 96361; 96365; 96366; 96367; 96375; 98960; 99291; A4606; J0282; J0696; J1644; J1650; J1815; J2060; J2250; J2470; J2543; J2704; J2919; J2930; J3010; J3370; J3475; J3480; J3490; J7030; J7040; J7042; J7050; J7060; J7608; P9041; G0480